=== PATIENT | male | born 1935 | race Caucasian/White ===

== ENCOUNTER 2023-08-18 09:58 | Emergency (ER) | payer MEDICARE, OTHER, SELFPAY ==
[2023-08-18 10:03] VITALS: BMI 27.7
[2023-08-18 10:06] VITALS: BP 145/56
[2023-08-18 10:28] VITALS: BP 126/61
[2023-08-18 10:39] LABS: % Basophils 0.4 % (0-2); % Eosinophils 2.5 % (0-6); % Immature Granulocytes 0.2 % (0-0.5); % Lymphocytes 34.4 % (20.5-51.1); % Neutrophils 54.5 % (42.2-75.2); Absolute Eosinophils 0.1 10^3/uL (0-0.7); Absolute Lymphocytes 1.7 10^3/uL (1.2-3.4); Absolute Monocytes 0.4 10^3/uL (0.1-0.6); Absolute Neutrophils 2.7 10^3/uL (1.4-6.5); Hematocrit 28.4 % (39.0-52.0); Hemoglobin 9.8 g/dL (13.0-18.0); Mean Corp Hgb Conc. 34.5 g/dL (33.0-37.0); Mean Corpuscular Hgb 35.8 pg (27.0-31.0); Mean Corpuscular Volume 103.6 fL (80.0-94.0); Mean Platelet Volume 11.6 fL (7.4-10.4); Nucleated Red Blood Cells % 0 % (-); Platelet Count 198 10^3/uL (130-400); Red Blood Cell Count 2.74 10^6/uL (4.70-6.10); White Blood Cell Count 4.9 10^3/uL (4.8-10.8)
[2023-08-18 10:56] LABS: ALT (SGPT) 19 U/L (0-50); AST (SGOT) 24 U/L (17-59); Albumin 3.4 g/dl (3.5-5.0); Alkaline Phosphatase 78 U/L (38-126); Blood Urea Nitrogen 25 mg/dl (9-20); Calcium 8.8 mg/dl (8.4-10.2); Carbon Dioxide 25 mmol/L (22-30); Chloride 111 mmol/L (98-107); Estimated Creatinine Clearance 38 ml/min; Glucose 145 mg/dl (70-99); Lipase 166 U/L (23-300); Potassium 4.1 mmol/L (3.5-5.1); Sodium 139 mmol/L (135-145); Total Bilirubin 0.8 mg/dl (0.2-1.3); Total Protein 5.7 g/dl (6.3-8.2); eGFR 48.04
[2023-08-18 11:00] VITALS: BP 140/61
--- NOTE | 2023-08-18 11:10 | ED.GENMED ---
History of Present Illness
<Amaris Bobby PA-C - Last Filed: 08/18/23 18:25>
General
Chief Complaint: Abdominal Pain
Source: patient
Exam Limitations: none
Time Seen by Provider: 08/18/23 10:12
Nursing documentation reviewed up to this point in time: agreed with
Travel History
Have you had any contact with someone who has COVID-19?: No
Do you have any symptoms of coronavirus? Fever > 100 degrees, chills, cough, shortness of breath, sore throat, loss of taste or smell, muscle aches, or headache?: No
History of Present Illness
History of Present Illness:
Patient is a 88-year-old male with history of hypertension, hyperlipidemia, renal calculi presenting to the emergency department for evaluation of left lower quadrant abdominal pain. Symptoms started about 2 days ago has been constant since. He
states pain is 5 out of 10 in severity. He denies any associated fever, chills, urinary symptoms, back pain nausea, vomiting, or diarrhea. He denies any blood in stool or abnormally dark stool. No chest pain, shortness of breath, or cough. He
has had no recent trauma or changes in medications.
He did require admission and stent placement for bilateral obstructing ureteral calculi in February of last year. He is unsure of the pain he is feeling today is similar to pain of renal colic in past.
Past History
<Amaris Bobby PA-C - Last Filed: 08/18/23 18:25>
Past History
ED Past Medical History: Arrthythmia (bradycardia), GERD, HTN, Hypercholesterolemia and Other (gout, asbestosis)
ED Past Surgical History: Orthopedic, Tonsilectomy and Urological
Social History
Tobacco: Non-smoker
Alcohol: None
Drug: None
Personal:
Living: with family
Employment: Retired (hospital volunteer)
Family History
Family History: Hypertension
Phy Exam
<Amaris Bobby PA-C - Last Filed: 08/18/23 18:25>
Physical Exam
Physical Exam:
General: Well appearing and non-toxic
Vitals: Hypertensive, afebrile
HEENT: Atraumatic, normocephalic; pupils equal round reactive to light bilaterally, posterior pharynx clear, protecting airway
Neck: appears supple no jugular venous distention
CV: Borderline bradycardic, heart sounds normal, no evidence of cyanosis
Resp: Bibasilar crackles, no evidence of respiratory distress, no accessory muscle use
Abd: Soft, mildly tender left lower quadrant without rebound or guarding, non-distended, no pulsatile mass
Extremities: No deformities, no evidence of cyanosis or edema
Neuro: alert and oriented x [address], not time; speech normal, no focal neurologic deficits, no focal motor deficits
Psych: Normal affect
Skin: Intact, no rashes
Course
<Amaris Bobby PA-C - Last Filed: 08/18/23 18:25>
Orders/Labs/Results
Orders:
Orders
08/18/23 10:15
IV Insert/Care/Rem.- Treatment PRN
08/18/23 10:19
Complete Blood Count/With Diff Urgent
Comprehensive Metabolic Panel Urgent
Lipase Urgent
08/18/23 11:20
CT Abd/pel Without Iv Or Oral Urgent
Comment: b/l stent placment for ureteral stones 03/06
Reason For Exam: LLQ pain w/ radiation to back
08/18/23 12:20
Urinalysis Reflex To Culture Urgent
Date Specimen was Collected: 08/18/23
Time Specimen was Collected: 12:18
08/18/23 13:34
0.9% Sodium Chloride 500 ml [Nss] 500 ml IV BOLUS
Abnormal Lab Results
08/18/23
10:19
RBC 2.74 L 10^6/uL
(4.70-6.10)
Hgb 9.8 L g/dL
(13.0-18.0)
Hct 28.4 L %
(39.0-52.0)
MCV 103.6 H fL
(80.0-94.0)
MCH 35.8 H pg
(27.0-31.0)
RDW 16.0 H %
(11.5-14.5)
MPV 11.6 H fL
(7.4-10.4)
Chloride 111 H mmol/L
(98-107)
BUN 25 H mg/dl
(9-20)
Creatinine 1.4 H mg/dL
(0.7-1.3)
Glucose 145 H mg/dl
(70-99)
Total Protein 5.7 L g/dl
(6.3-8.2)
Albumin 3.4 L g/dl
(3.5-5.0)
08/18/23 10:19
08/18/23 10:19
Vital Signs
Initial and Last Documented VS:
Initial Vital Signs
Temp Pulse Resp BP Pulse Ox
97.7 F 51 14 145/56 95
08/18/23 10:06 08/18/23 10:06 08/18/23 10:06 08/18/23 10:06 08/18/23 10:06
Last Documented Vital Signs
Temp Pulse Resp BP Pulse Ox
97.7 F 45 14 165/64 98
08/18/23 10:06 08/18/23 14:00 08/18/23 14:00 08/18/23 14:00 08/18/23 14:00
Donnalt;Rob Sams MD - Last Filed: 08/18/23 13:58>
Orders/Labs/Results
Orders:
Orders
08/18/23 10:15
IV Insert/Care/Rem.- Treatment PRN
08/18/23 10:19
Complete Blood Count/With Diff Urgent
Comprehensive Metabolic Panel Urgent
Lipase Urgent
08/18/23 11:20
CT Abd/pel Without Iv Or Oral Urgent
Comment: b/l stent placment for ureteral stones 03/06
Reason For Exam: LLQ pain w/ radiation to back
08/18/23 12:20
Urinalysis Reflex To Culture Urgent
Date Specimen was Collected: 08/18/23
Time Specimen was Collected: 12:18
08/18/23 13:34
0.9% Sodium Chloride 500 ml [Nss] 500 ml IV BOLUS
Abnormal Lab Results
08/18/23
10:19
RBC 2.74 L 10^6/uL
(4.70-6.10)
Hgb 9.8 L g/dL
(13.0-18.0)
Hct 28.4 L %
(39.0-52.0)
MCV 103.6 H fL
(80.0-94.0)
MCH 35.8 H pg
(27.0-31.0)
RDW 16.0 H %
(11.5-14.5)
MPV 11.6 H fL
(7.4-10.4)
Chloride 111 H mmol/L
(98-107)
BUN 25 H mg/dl
(9-20)
Creatinine 1.4 H mg/dL
(0.7-1.3)
Glucose 145 H mg/dl
(70-99)
Total Protein 5.7 L g/dl
(6.3-8.2)
Albumin 3.4 L g/dl
(3.5-5.0)
08/18/23 10:19
08/18/23 10:19
Vital Signs
Initial and Last Documented VS:
Initial Vital Signs
Temp Pulse Resp BP Pulse Ox
97.7 F 51 14 145/56 95
08/18/23 10:06 08/18/23 10:06 08/18/23 10:06 08/18/23 10:06 08/18/23 10:06
Last Documented Vital Signs
Temp Pulse Resp BP Pulse Ox
97.7 F 45 14 165/64 98
08/18/23 10:06 08/18/23 14:00 08/18/23 14:00 08/18/23 14:00 08/18/23 14:00
<Amaris Bobby PA-C - Last Filed: 08/18/23 18:25>
MDM/Problems Addressed
Differential Diagnosis Includes:
diverticulitis, renal colic, UTI, muscular strain,
MDM/Problems Addressed:
Patient is 88-year-old male presenting for evaluation of left lower quad abdominal pain for the past 2 days. This without associated fever, chills, nausea, vomiting, back pain, or urinary symptoms. He does have a history of bilateral ureteral
calculi requiring stents in February of last year. Stents have since been removed. And he follows with urology. Physical exam as document above. He is hemodynamically stable, appears well on exam. He is very mildly tender in left lower quadrant
without any rebound or guarding. No CVA tenderness. Given history of kidney stones�will get basic labs, CMP, lipase. Will check urine and get CT scan of abdomen pelvis to ensure no stones or other pathology. Patient does not want pain meds at
this time as pain is very minimal.
CBC significant for mild anemia with hemoglobin of 9.8�which appears to be about patient's baseline. Otherwise no clinically significant abnormalities. CMP shows mild elevation in BUN and creatinine with decrease in albumin. This is suggestive of
mild renal insufficiency due to likely dehydration. Otherwise no clinically significant abnormalities. Lipase normal. Patient send states he probably does not drink enough water. Urinalysis and CT scan
Update 12:15PM: Patient states pain has subsided completely.
Urinalysis shows no evidence of acute infection or hematuria. CT scan shows no acute findings suggestive of urinary tract calculus or other acute intra-abdominal pathology.
Workup is being negative. He remained stable in emergency department. Based on findings consistent with prerenal insufficiency-will give IV fluids. No indication for admission at this time. He is stable for discharge with close return
precautions, primary care follow-up. Discussed importance of staying well-hydrated. He should have blood work rechecked with primary care in a few weeks. Patient and patient's son expressed understanding. They are comfortable this plan and all
questions were answered.
Chronic conditions affecting care:
HTN, HLD, renal calculi
Acute Exacerbation and/or Progression of Chronic Illness:
Prerenal azotemia, dehydration
<Amaris Bobby PA-C - Last Filed: 08/18/23 18:25>
*Radiology
Radiology exam reviewed: radiology read reviewed
*Pulse Oximetry
Patient hypoxic: no
*Blacksmith Apprentice Interpretation
Rate: bradycardiac
Interpretation: normal
Heart Rate: 58
Rhythm: sinus
*Critical Care Note
Total Time (30-74mins, 75-104mins- exclusive of procedures): Not Applicable
Data Reviewed
Review of Other/Old Records Reveals: Labs, Records, Operative Reports, Progress Notes and Discharge Summary
Source: records and previous hospital records
ED Attending Note
<Amaris Bobby PA-C - Last Filed: 08/18/23 18:25>
-
Portions of this chart may have been created with voice recognition software.� Occasional wrong word or��sound alike� substitutions may have occurred due to the inherent limitations of voice recognition software.
<Rob Sams MD - Last Filed: 08/18/23 13:58>
ED Attending Note
Patient seen and examined by attending physician: Yes
ED Attending Note:
Patient presents to ED secondary to persistent left-sided abdominal pain over the past 2 days. Abdominal pain described as pressure, nonradiating, without any alleviating or exacerbating factors. Denies nausea, vomiting, or diarrhea. Denies fever
or chills. Denies back pain. Denies difficulty with urination. Denies trauma. Denies recent change in level of activities. Denies change in medications or diet. Patient does have history of recent kidney stone, which required admission.
However, patient is unsure if his pain is similar to what he had experienced at that time. At the time of evaluation in ED, patient is without any abdominal pain.
Physical Exam
General: no apparent distress, not acutely ill. afebrile
Head: nc/at. eomi
Neck: supple. normal range of motion.
Abdomen: normal bowel sounds. not tender.
Neuro: alert and oriented. no focal neurological deficits
Skin: no rash
Psychiatric: well kept. interactive and cooperative
Extremities: no edema. no calf tenderness.
Patient with an unremarkable workup in ED, including blood work and CT scan, along with urinalysis. Acute renal failure, likely prerenal, as patient admits to not drinking enough water along with soda consumption at home. As such, patient will be
given IV fluid prior to discharge, along with recommendation to continue hydration at home as well as repeat blood work through his primary care physician in 1 to 2 weeks. Patient is otherwise afebrile, hemodynamically stable, and
nontoxic-appearing, at time of discharge to the care of his son.
Discharge Plan
Departure
Patient Disposition: Home (Routine Discharge)
Date of Disposition: 08/18/23
Time of Disposition: 13:47
Patient with high blood pressure during this ER visit?: Yes
Condition: Good
Covid-19: Not Applicable
Discharge Problem:
Prerenal azotemia, Abdominal pain
Instructions: Dehydration, Adult (DC)
Prescriptions:
No Action
aspirin 81 MG tablet,delayed release (DR/EC)
81 mg PO DAILY
atorvastatin 40 MG tablet
40 mg PO HS
allopurinol 100 MG tablet
100 mg PO DAILY
escitalopram oxalate 10 MG tablet
10 mg PO DAILY
pantoprazole 40 MG tablet,delayed release (DR/EC)
40 mg PO BID Qty: 60 0RF
tamsulosin [Flomax] 0.4 mg capsule
0.4 mg PO DAILY Qty: 14 0RF
acetaminophen 325 mg Tablet
650 mg PO Q6H MDD 3000 MG PRN (Reason: Pain, Fever > 101)
magnesium hydroxide [Milk of Magnesia] 400 mg/5 mL Suspension
30 ml PO Daily PRN (Reason: No BM in 3 days)
bisacodyl [Dulcolax (bisacodyl)] 10 mg Suppository
10 mg WV DAILY PRN (Reason: If not BM 8hrs post MOM)
Fleet Enema 19-7 gram/118 mL Enema
118 ml WV DAILYPRN PRN (Reason: no BM 4 hrs post Dulcolax)
levofloxacin [Levaquin] 500 mg Tablet
500 mg PO QPM
Referrals:
Faisal Romero MD [Family Provider] - Follow up in 1 week
Activity Restrictions/Additional Instructions:
-Return to the emergency department with any high fevers, chest pain, shortness of breath, severe abdominal pain, intractable vomiting, signs of severe dehydration, worsening in current symptoms, or any other concerns
-It is important to stay well hydrated
-Follow-up with primary care for further evaluation/treatment. You should keep your appointment for urology follow-up.
Interventions
Interventions:
*Risk Screen - Suicide Last Done: 08/18/23 10:12
*General Assessment Last Done: 08/18/23 10:12
*Neglect/Abuse Screening Last Done: 08/18/23 10:12
ED- Fall Risk Assessment Last Done: 08/18/23 10:12
*ED COVID-19 Vaccine History Last Done: 08/18/23 10:06
*Nursing Disposition Last Done: 08/18/23 14:30
TE-[id number]-Ydpjomhars Assessment Last Done: 08/18/23 10:30
Discharge Date and Time
Discharge Date/Time: 08/18/23 14:30
[2023-08-18 12:22] VITALS: BP 139/57
[2023-08-18 12:34] LABS: Urine Albumin Trace (Neg - Trace); Urine Bilirubin Negative (Negative); Urine Character Clear (Clear); Urine Color Yellow; Urine Glucose Negative (Negative); Urine Ketone Negative (Negative); Urine Leukocyte Negative (Negative); Urine Nitrite Negative (Negative); Urine Occult Blood Negative (Negative); Urine Urobilinogen Negative (Neg - 1+)
[2023-08-18 13:00] VITALS: BP 137/66
[2023-08-18] MEDS: NSS 500 IV (13:40)
[2023-08-18 14:00] VITALS: BP 165/64
== END 2023-08-18 14:30 | disposition home or self-care (01) ==
LOC: EMR 09:58
PROVIDERS: Physician Assistant; EMERGENCY PHYSICIAN Emergency Medicine; FAMILY PHYSICIAN Family Medicine
DX: R79.89 Other specified abnormal findings of blood chemistry (principal); R10.32 Left lower quadrant pain; I10 Essential (primary) hypertension; E78.00 Pure hypercholesterolemia, unspecified; K21.9 Gastro-esophageal reflux disease without esophagitis; M10.9 Gout, unspecified; I70.90 Unspecified atherosclerosis; J44.9 Chronic obstructive pulmonary disease, unspecified; K57.90 Diverticulosis of intestine, part unspecified, without perforation or abscess without bleeding; N40.0 Benign prostatic hyperplasia without lower urinary tract symptoms; G47.30 Sleep apnea, unspecified; M19.90 Unspecified osteoarthritis, unspecified site; M48.00 Spinal stenosis, site unspecified; D64.9 Anemia, unspecified; F41.9 Anxiety disorder, unspecified; F32.A Depression, unspecified; J61 Pneumoconiosis due to asbestos and other mineral fibers; Z79.82 Long term (current) use of aspirin; Z96.652 Presence of left artificial knee joint; Z87.442 Personal history of urinary calculi; Z88.8 Allergy status to other drugs, medicaments and biological substances
CPT/HCPCS: 51798; 74176; 80053; 81003; 83690; 85025; 96360; 99284

== ENCOUNTER → 2023-08-30 10:50 | Outpatient (REF) | payer MEDICARE, OTHER, SELFPAY ==
[2023-08-30 11:40] LABS: % Basophils 0.7 % (0-2); % Immature Granulocytes 0.2 % (0-0.5); % Lymphocytes 34.1 % (20.5-51.1); % Monocytes 8.1 % (1.7-9.3); % Neutrophils 53.9 % (42.2-75.2); Absolute Eosinophils 0.2 10^3/uL (0-0.7); Absolute Lymphocytes 1.9 10^3/uL (1.2-3.4); Absolute Monocytes 0.5 10^3/uL (0.1-0.6); Hematocrit 28.9 % (39.0-52.0); Hemoglobin 9.9 g/dL (13.0-18.0); Mean Corp Hgb Conc. 34.3 g/dL (33.0-37.0); Mean Corpuscular Hgb 35.5 pg (27.0-31.0); Mean Corpuscular Volume 103.6 fL (80.0-94.0); Mean Platelet Volume 12.3 fL (7.4-10.4); Nucleated Red Blood Cells % 0 % (-); Platelet Count 208 10^3/uL (130-400); Red Blood Cell Count 2.79 10^6/uL (4.70-6.10); Red Cell Dist. Width 15.9 % (11.5-14.5); White Blood Cell Count 5.6 10^3/uL (4.8-10.8)
[2023-08-30 13:04] LABS: ALT (SGPT) 16 U/L (0-50); AST (SGOT) 24 U/L (17-59); Albumin 3.3 g/dl (3.5-5.0); Alkaline Phosphatase 73 U/L (38-126); Blood Urea Nitrogen 26 mg/dl (9-20); Calcium 9.2 mg/dl (8.4-10.2); Carbon Dioxide 27 mmol/L (22-30); Chloride 104 mmol/L (98-107); Glucose 95 mg/dl (70-99); Iron 143 ug/dl (49-181); Potassium 4.5 mmol/L (3.5-5.1); Sodium 139 mmol/L (135-145); Total Protein 5.6 g/dl (6.3-8.2); eGFR 48.04
[2023-08-30 13:13] LABS: Percent Saturation 58 % (20-50); Total Iron Binding Capacity 246 ug/dl (261-462)
[2023-08-30 13:22] LABS: TSH 2.73 uIU/ml (0.47-4.68)
[2023-08-30 13:55] LABS: Folate 3.4 ng/ml (2.76-20); Vitamin B12 442 pg/ml (239-931)
== END ==
LOC: OLABP 10:50
PROVIDERS: ATTENDING PHYSICIAN Physician Assistant Medical
DX: Z09 Encounter for follow-up examination after completed treatment for conditions other than malignant neoplasm (principal); R10.9 Unspecified abdominal pain; D64.89 Other specified anemias; Z87.19 Personal history of other diseases of the digestive system; G30.9 Alzheimer's disease, unspecified; Z68.27 Body mass index [BMI] 27.0-27.9, adult; N18.30 Chronic kidney disease, stage 3 unspecified
CPT/HCPCS: 80053; 82607; 82728; 82746; 83540; 83550; 84443; 85025

== ENCOUNTER → 2023-09-03 10:00 | Outpatient (REF) | payer MEDICARE, OTHER, SELFPAY ==
[2023-09-05 18:04] LABS: FIT-Fecal Occult Blood Interp Positive
== END ==
LOC: OLABP 10:00
PROVIDERS: ATTENDING PHYSICIAN Physician Assistant Medical
DX: Z09 Encounter for follow-up examination after completed treatment for conditions other than malignant neoplasm (principal); R10.9 Unspecified abdominal pain; D64.89 Other specified anemias; Z87.19 Personal history of other diseases of the digestive system; G30.9 Alzheimer's disease, unspecified; Z68.27 Body mass index [BMI] 27.0-27.9, adult
CPT/HCPCS: 83520

== ENCOUNTER → 2023-09-23 11:16 | Outpatient (REF) | payer OTHER, MEDICARE, SELFPAY ==
[2023-09-23 12:25] LABS: % Basophils 0.6 % (0-2); % Eosinophils 3.9 % (0-6); % Immature Granulocytes 0.4 % (0-0.5); % Lymphocytes 28.5 % (20.5-51.1); % Monocytes 10.1 % (1.7-9.3); % Neutrophils 56.5 % (42.2-75.2); Absolute Eosinophils 0.3 10^3/uL (0-0.7); Absolute Monocytes 0.7 10^3/uL (0.1-0.6); Absolute Neutrophils 3.9 10^3/uL (1.4-6.5); Hemoglobin 8.8 g/dL (13.0-18.0); Mean Corp Hgb Conc. 33.8 g/dL (33.0-37.0); Mean Corpuscular Hgb 35.5 pg (27.0-31.0); Mean Corpuscular Volume 104.8 fL (80.0-94.0); Mean Platelet Volume 12.2 fL (7.4-10.4); Nucleated Red Blood Cells % 0.3 % (-); Platelet Count 246 10^3/uL (130-400); Red Blood Cell Count 2.48 10^6/uL (4.70-6.10); Red Cell Dist. Width 16.5 % (11.5-14.5); White Blood Cell Count 6.9 10^3/uL (4.8-10.8)
[2023-09-23 12:47] LABS: Blood Urea Nitrogen 23 mg/dl (9-20); Calcium 8.4 mg/dl (8.4-10.2); Carbon Dioxide 25 mmol/L (22-30); Chloride 108 mmol/L (98-107); Glucose 91 mg/dl (70-99); Potassium 4.3 mmol/L (3.5-5.1); Sodium 136 mmol/L (135-145); eGFR 57.81
== END ==
LOC: OLABP 11:16
PROVIDERS: ATTENDING PHYSICIAN Family Medicine
DX: S02.2XXD Fracture of nasal bones, subsequent encounter for fracture with routine healing (principal); S00.33XD Contusion of nose, subsequent encounter; S02.92XD Unspecified fracture of facial bones, subsequent encounter for fracture with routine healing; S01.81XD Laceration without foreign body of other part of head, subsequent encounter; W06.XXXD Fall from bed, subsequent encounter; M62.81 Muscle weakness (generalized); R26.2 Difficulty in walking, not elsewhere classified; I10 Essential (primary) hypertension; E78.5 Hyperlipidemia, unspecified; R00.1 Bradycardia, unspecified; I95.1 Orthostatic hypotension; I45.10 Unspecified right bundle-branch block; J44.9 Chronic obstructive pulmonary disease, unspecified; G31.84 Mild cognitive impairment of uncertain or unknown etiology; H35.30 Unspecified macular degeneration
CPT/HCPCS: 36415; 80048; 85025

== ENCOUNTER → 2023-10-14 09:34 | Outpatient (REF) | payer MEDICARE, OTHER, SELFPAY ==
[2023-10-15 14:22] LABS: H. pylori Breath Test Negative (Negative)
== END ==
LOC: REG 09:34
PROVIDERS: ATTENDING PHYSICIAN Physician Assistant Medical; FAMILY PHYSICIAN Family Medicine
DX: K21.9 Gastro-esophageal reflux disease without esophagitis (principal); Z87.19 Personal history of other diseases of the digestive system; D64.9 Anemia, unspecified; R19.5 Other fecal abnormalities
CPT/HCPCS: 36415; 83013

== ENCOUNTER → 2023-10-18 12:50 | Outpatient (REF) | payer MEDICARE, OTHER, SELFPAY ==
[2023-10-18 13:42] LABS: % Basophils 0.5 % (0-2); % Eosinophils 2.5 % (0-6); % Immature Granulocytes 0.7 % (0-0.5); % Lymphocytes 33.2 % (20.5-51.1); % Neutrophils 55.1 % (42.2-75.2); Absolute Eosinophils 0.2 10^3/uL (0-0.7); Absolute Monocytes 0.5 10^3/uL (0.1-0.6); Absolute Neutrophils 3.3 10^3/uL (1.4-6.5); Hematocrit 26.9 % (39.0-52.0); Hemoglobin 8.9 g/dL (13.0-18.0); Mean Corp Hgb Conc. 33.1 g/dL (33.0-37.0); Mean Corpuscular Hgb 36.2 pg (27.0-31.0); Mean Corpuscular Volume 109.3 fL (80.0-94.0); Mean Platelet Volume 11.9 fL (7.4-10.4); Nucleated Red Blood Cells % 0.3 % (-); Platelet Count 216 10^3/uL (130-400); Red Blood Cell Count 2.46 10^6/uL (4.70-6.10); Red Cell Dist. Width 16.8 % (11.5-14.5)
[2023-10-18 14:02] LABS: ALT (SGPT) 28 U/L (0-50); AST (SGOT) 27 U/L (17-59); Albumin 3.4 g/dl (3.5-5.0); Alkaline Phosphatase 76 U/L (38-126); Blood Urea Nitrogen 23 mg/dl (9-20); Calcium 8.9 mg/dl (8.4-10.2); Carbon Dioxide 23 mmol/L (22-30); Chloride 112 mmol/L (98-107); Glucose 93 mg/dl (70-99); Potassium 4.9 mmol/L (3.5-5.1); Sodium 139 mmol/L (135-145); Total Bilirubin 0.5 mg/dl (0.2-1.3); Total Protein 5.7 g/dl (6.3-8.2); eGFR 57.81
[2023-10-18 14:22] LABS: Free T4 0.75 ng/dl (0.78-2.19); Vitamin D, 25-OH*** 20.2 ng/mL (30-80)
[2023-10-18 15:11] LABS: Folate 5.4 ng/ml (2.76-20); Vitamin B12 436 pg/ml (239-931)
[2023-10-22 16:40] LABS: Syphilis/T. pallidum Ab Reflex Negative (Negative)
== END ==
LOC: OLABLV 12:50
PROVIDERS: ATTENDING PHYSICIAN Internal Medicine
DX: E55.9 Vitamin D deficiency, unspecified (principal); I10 Essential (primary) hypertension; E78.5 Hyperlipidemia, unspecified; Z53.9 Procedure and treatment not carried out, unspecified reason; D52.0 Dietary folate deficiency anemia; E03.9 Hypothyroidism, unspecified; E53.8 Deficiency of other specified B group vitamins
CPT/HCPCS: 36415; 80053; 82306; 82607; 82746; 84439; 84443; 85025; 86780

== ENCOUNTER → 2023-12-13 10:40 | Outpatient (REF) | payer MEDICARE, OTHER, SELFPAY ==
[2023-12-13 11:49] LABS: % Basophils 0.5 % (0-2); % Eosinophils 3.8 % (0-6); % Immature Granulocytes 0.3 % (0-0.5); % Lymphocytes 30.1 % (20.5-51.1); % Neutrophils 55.3 % (42.2-75.2); Absolute Eosinophils 0.2 10^3/uL (0-0.7); Absolute Lymphocytes 1.7 10^3/uL (1.2-3.4); Absolute Monocytes 0.6 10^3/uL (0.1-0.6); Absolute Neutrophils 3.2 10^3/uL (1.4-6.5); Hematocrit 28.8 % (39.0-52.0); Hemoglobin 9.7 g/dL (13.0-18.0); Mean Corp Hgb Conc. 33.7 g/dL (33.0-37.0); Mean Corpuscular Hgb 35.4 pg (27.0-31.0); Mean Corpuscular Volume 105.1 fL (80.0-94.0); Mean Platelet Volume 12.2 fL (7.4-10.4); Nucleated Red Blood Cells % 0 % (-); Platelet Count 180 10^3/uL (130-400); Red Blood Cell Count 2.74 10^6/uL (4.70-6.10); Red Cell Dist. Width 15.2 % (11.5-14.5); White Blood Cell Count 5.7 10^3/uL (4.8-10.8)
[2023-12-13 12:04] LABS: ALT (SGPT) 19 U/L (0-50); AST (SGOT) 26 U/L (17-59); Albumin 3.3 g/dl (3.5-5.0); Alkaline Phosphatase 72 U/L (38-126); Blood Urea Nitrogen 17 mg/dl (9-20); Carbon Dioxide 28 mmol/L (22-30); Chloride 108 mmol/L (98-107); Glucose 95 mg/dl (70-99); Potassium 4.2 mmol/L (3.5-5.1); Sodium 141 mmol/L (135-145); Total Bilirubin 0.8 mg/dl (0.2-1.3); Total Protein 5.7 g/dl (6.3-8.2); eGFR 57.81
[2023-12-13 12:32] LABS: TSH 3.01 uIU/ml (0.47-4.68)
== END ==
LOC: OLABLV 10:40
PROVIDERS: ATTENDING PHYSICIAN Internal Medicine; REFERRING PHYSICIAN Nurse Practitioner Gerontology
DX: R00.1 Bradycardia, unspecified (principal); I10 Essential (primary) hypertension; J44.9 Chronic obstructive pulmonary disease, unspecified
CPT/HCPCS: 36415; 80053; 84443; 85025